=== PATIENT | female | born 1945 | race American Indian/Alaskan Native ===

== ENCOUNTER 2017-10-13 08:14 | Outpatient (CLI) | payer MEDICARE ==
[2017-10-13 09:23] LABS: Blood Urea Nitrogen 9 mg/dL (7-17)
--- NOTE | 2017-10-13 13:44 | Cat Scan Report ---
CT ABDOMEN AND PELVIS WITH CONTRAST: 10/13/17 08:14:00 CLINICAL: Malignant neoplasm of rectosigmoid junction. COMPARISON: 10/07/16 TECHNIQUE: Volumetric acquisition and 1.25 millimeter scan reconstructions after the uneventful intravenous injection of 100 cc Omnipaque 300. Consent was obtained prior to the administration of contrast. Oral contrast was also given. FINDINGS: Abdomen: Normal liver size, contour and overall density. Stable right hepatic hypodense masses. The largest measures 3.9 x 3.2 cm. The next largest measures 2.1 x 1.8 cm. Both lesions demonstrate enhancement typical of benign hemangiomas. Stable 2.3 x 2.2 cm inferior right hepatic cyst. No new mass. The bile ducts are normal status post cholecystectomy. Normal stomach, duodenum, pancreas and spleen. Normal aorta and inferior vena cava. Normal small bowel.Normal ascending, transverse and descending colon. An appendix is not identified. No mass, lymphadenopathy or ascites.No pneumoperitoneum. Pelvis: Normal urinary bladder.Status post hysterectomy with normal vaginal cuff. Normal rectosigmoid anastomosis. The rectum and sigmoid colon are normal.. Bone windows demonstrate no bone lesion. IMPRESSION:1. Stable benign hepatic cavernous hemangiomas and hepatic cysts. 2. Status post cholecystectomy and hysterectomy. 3. Status post colon resection with a normal rectosigmoid anastomosis. 4. No evidence of metastasis.
== END 2017-10-13 08:15 | disposition home or self-care (01) ==
LOC: CT 08:14
PROVIDERS: ATTEND Internal Medicine Hematology & Oncology
DX: C19 Malignant neoplasm of rectosigmoid junction (principal); D18.09 Hemangioma of other sites; K76.89 Other specified diseases of liver; Z90.49 Acquired absence of other specified parts of digestive tract; Z90.710 Acquired absence of both cervix and uterus
CPT/HCPCS: 36415; 74177; 82565; 84520; Q9967

== ENCOUNTER 2019-09-01 08:47 | Outpatient (CLI) | payer MEDICARE ==
[2019-09-01 09:46] LABS: Blood Urea Nitrogen 7 mg/dL (7-17)
--- NOTE | 2019-09-01 12:27 | Cat Scan Report ---
CT ABDOMEN AND PELVIS WITH CONTRAST HISTORY: MAIN: C19 MALIGNANT NEOPLASM OF RECTOSIGMOID JUNCTION OMNI 300/78ML COMPARISON: 10/14/2018 TECHNIQUE: Axial CT images were obtained through the abdomen and pelvis after 100 cc of Omnipaque 300 intravenously. Sagittal and coronal reformatted images. All CT scans at this location are performed using CT dose reduction for ALARA by means of automated exposure control. FINDINGS: CT ABDOMEN: Lung Bases: Clear. Liver: 2.7 cm and 4.6 cm right hepatic lobe hypodensities with peripheral nodular enhancement are unc hanged and consistent with type II enhancement pattern of cavernous hemangiomas. 2.3 cm cyst in the i nferior right hepatic lobe is also unchanged. No suspicious liver mass has developed. Biliary: Cystectomy. Mild diffuse biliary prominence is unchanged. Spleen: No significant abnormality. Unenlarged. Pancreas: No significant abnormality. Adrenals: No significant abnormality. Kidneys: No significant abnormality. Lymphatics: No lymphadenopathy. Vasculature: No significant abnormality. Bowel/Peritoneum: Surgical suture line in the rectum and mid small bowel are again noted. No evidence for local recurrence of tumor. The bowel loops are within normal limits otherwise. No obvious focal mass or inflammatory changes. The appendix is not confidently identified, correlate with surgical his tory. CT PELVIS: : Hysterectomy. The bladder and distal ureters are unremarkable. Osseous Structures: No suspicious bony lesion is developed. Additional Findings: None IMPRESSION: No evidence for disease recurrence or metastasis. Stable findings since 10/14/2018 exam. Surgical changes as described. Stable liver hypodensities representing hemangiomas and cyst. Signer Name: Jaison Altman Jr, MD Signed: 09/01/2019 12:22 PM Workstation Name: [id number]
== END 2019-09-01 08:48 | disposition home or self-care (01) ==
LOC: CT 08:47
PROVIDERS: ATTEND Internal Medicine Hematology & Oncology
DX: C19 Malignant neoplasm of rectosigmoid junction (principal)
CPT/HCPCS: 36415; 74177; 82565; 84520